=== PATIENT | female | born 1980 | race African-American/Black ===

== ENCOUNTER 2018-09-13 13:40 | Inpatient (IN) | payer BC ==
[2018-09-13 14:59] LABS: BASO % 0.5 % (0-2.0); EOS % 0.1 % (0-4.5); HEMATOCRIT 35.1 % (32.4-45.2); HEMOGLOBIN 11.8 GM/dL (10.7-15.3); LYMPH % 11.8 % (8-40); MCH 27.7 pg (25.7-33.7); MCHC 33.8 g/dl (32.0-36.0); MEAN CELL VOLUME 82.1 fl (80-96); MEAN PLT VOLUME 9.8 fl (7.5-11.1); MONO % 8.1 % (3.8-10.2); NEUT % 79.5 % (42.8-82.8); PLATELET COUNT 82 K/MM3 (134-434); RBC 4.27 M/mm3 (3.60-5.2); RDW 13.8 % (11.6-15.6); WHITE BLOOD COUNT 9.8 K/mm3 (4.0-10.0)
[2018-09-13 15:15] LABS: INR 0.92 (0.83-1.09); PROTHROMBIN TIME (PATIENT) 10.9 SEC (9.7-13.0)
[2018-09-13 15:18] LABS: ACTIVATED PTT 27.4 SECONDS (25.2-36.5)
[2018-09-13 15:21] LABS: URINE APPEARANCE CLEAR; URINE BILIRUBIN NEGATIVE (NEGATIVE); URINE COLOR YELLOW; URINE GLUCOSE (UA) NEGATIVE (NEGATIVE); URINE KETONE 2+ (NEGATIVE); URINE LEUK ESTERASE NEGATIVE (NEGATIVE); URINE NITRITE NEGATIVE (NEGATIVE); URINE PROTEIN TRACE (NEGATIVE); URINE UROBILINOGEN 0.2 mg/dL (0.2-1.0)
[2018-09-13 15:24] LABS: ALBUMIN 2.6 g/dl (3.4-5.0); ALK PHOS 203 U/L (45-117); ANION GAP 7 MMOL/L (8-16); BILIRUBIN,TOTAL 0.8 mg/dL (0.2-1); BLOOD UREA NITROGEN 6 mg/dL (7-18); CALCIUM 8.4 mg/dL (8.5-10.1); CHLORIDE 103 mmol/L (98-107); CO2 24 mmol/L (21-32); CREATININE 0.6 mg/dL (0.55-1.3); GLUCOSE,RANDOM 83 mg/dL (74-106); POTASSIUM 3.8 mmol/L (3.5-5.1); SGOT/AST 838 U/L (15-37); SGPT/ALT 857 U/L (13-61); SODIUM 134 mmol/L (136-145); TOT PROT 6.2 g/dl (6.4-8.2); URIC ACID 5.9 mg/dL (2.6-7.2)
[2018-09-13 15:49] LABS: ANISOCYTOSIS 0; MACROCYTOSIS 0; PLATELET ESTIMATE DECREASED
[2018-09-13] MEDS: DEXTROSE 5%-LACTATED RINGERS 1,000 ML IV SCH (16:00)
[2018-09-13 16:34] VITALS: BMI 32.8
--- NOTE | 2018-09-13 17:50 | HP ---
Past Medical History - Primary Care Physician PCP:: Lexa Crews - Admission Chief Complaint: 37yo P2 with at EGA 37 4/7wks admitted to L&D with c/ o increasing RUQ pain since last night. 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 She denies nausea or vomiting but admits to polydipsia. The pt was found to have elevated AST and ALT in >800 range with Plt=82. The liver US showed non-specific echogenic areas w/o evidence of cholelythisis. 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: No: Alzheimer's, CVA, Dementia, Migraine, Multiple Sclerosis, Peripheral Neuropathy, Parkinson's, Seizure, Syncope, TIA, Vertigo, Other Cardiovascular: No: AFIB, Aneurysm, Aortic Insufficiency, Aortic Stenosis, CAD, CHF, Deep Vein Thrombosis, HTN, Hyperlipdemia, MS, Mitral Insufficiency, Mitral Stenosis, Murmur, Pulmonary Hypertension, Other Pulmonary: No: Asthma, Bronchitis, Cancer, COPD, O2 Dependent, Pneumonia, Previously Intubated, Pulmonary Embolus, Pulmonary Fibrosis, Sleep Apnea, Other Gastrointestinal: No: Ascites, Cancer, Constipation, Crohn's Disease, Diverticulitis, Diverticulosis, Esophageal Varices, Gastritis, GERD, GI Bleed, Hemorrhoids, Hiatal Hernia, Inflamatory Bowel Disease, Irritable Bowel Disease, Pancreatitis, Peptic Ulcer Disease, Ulcerative Colitis, Other Hepatobiliary: No: Cirrhosis, Cholelithiasis, Cholecystitis, Choledocholithiasis , Hepatitis A, Hepatitis B, Hepatitis C, Other Renal/: No: Renal Failure, Renal Inusuff, BPH, Cancer, Hematuria, Hemodialysis , Neurogenic Bladder, Renal Calculi, UTI, Other ...: 3 ...Para: 2 ( x 2) ...Term: 2 ...: 0 ...Spon : 0 ...Induced : 0 ...Multiple Gestation: 0 ...LMP: 12/24/17 ... Weeks Gestation by Dates: 37.4 ...EDC by Dates: 09/30/18 ...EDC by Sono: 09/30/18 Heme/Onc: No: Anemia, B12 Deficiency, Bleeding Disorder, Cancer, Current Chemotherapy, Current Radiation Therapy, Hemochromatosis, Hypercoaguable State, Myeloproliferative Synd, Sickle Cell Disease, Sickle Cell Trait, Thrombocytopenia, Other Infectious Disease: No: AIDS, C-Diff, Herpes Zoster, HIV, MRSA, STD's, Tuberculosis, VREF, Other Psych: No: Addictions, Anxiety, Bipolar, Depression, Panic, Psychosis, Schizophrenia, Other Musculoskeletal: No: Bursitis, Chronic low back pain, Hemiparesis, Hemiplegia, Osteoarthritis, Paraplegia, Other Rheumatology: No: Fibromyalgia, Gout, Lupus, Rheumatoid Arthritis, Sarcoidosis, Vasculitis, Other ENT: No: Allergic Rhinitis, Sinusitis, Other Endocrine: Yes: Hypothyroidism Dermatology: No: Basal Cell, Cellulitis, Eczema, Melanoma, Psoriasis, Squamous Cell, Other - Past Surgical History Past Surgical History: Yes: Hernia Repair Hx Myomectomy: No Hx Transabdominal Cerclage: No - Smoking History Smoking history: Never smoked Have you smoked in the past 12 months: No - Alcohol/Substance Use Hx Alcohol Use: No History of Substance Use: reports: None - Social History Usual Living Arrangement: Yes: With Spouse, With Child ADL: Independent History of Recent Travel: No Home Medications - Allergies Allergies/Adverse Reactions: Allergies Allergy/AdvReac Type Severity Reaction Status Date / Time Penicillins Allergy Severe Hives Verified 09/13/18 16:03 - Home Medications Home Medications: Ambulatory Orders Levothyroxine [Synthroid -] 175 mcg PO DAILY 09/13/18 Pnv No.95/Ferrous Fum/Folic AC [ Vitamin Tablet] 1 each PO DAILY Family Disease History - Family Disease History Family History: Unremarkable Review of Systems Findings/Remarks: Well appearing, NAD - Review of Systems Constitutional: reports: No Symptoms Eyes: reports: No Symptoms HENT: reports: No Symptoms Neck: reports: No Symptoms Cardiovascular: reports: No Symptoms Respiratory: reports: No Symptoms Gastrointestinal: reports: Abdominal Pain (RUQ) Genitourinary: reports: No Symptoms Breasts: reports: No Symptoms Reported Musculoskeletal: reports: No Symptoms Integumentary: reports: No Symptoms Neurological: reports: No Symptoms Endocrine: reports: No Symptoms Hematology/Lymphatic: reports: No Symptoms Psychiatric: reports: No Symptoms Pain Intensity: 4 Physical Exam - Maternity Vital Signs: Vital Signs Temperature 98.7 F 09/13/18 15:30 Pulse Rate 93 H 09/13/18 17:00 Respiratory Rate 18 09/13/18 17:00 Blood Pressure 135/86 09/13/18 17:00 O2 Sat by Pulse Oximetry (%) Constitutional: Yes: Well Nourished, No Distress, Calm Eyes: Yes: WNL, Conjunctiva Clear, EOM Intact HENT: Yes: WNL, Atraumatic, Normocephalic Neck: Yes: WNL, Supple, Trachea Midline Cardiovascular: Yes: WNL, Regular Rate and Rhythm Lungs: Clear to auscultation, Normal air movement - Abdominal Exam/OB Fundal Height: 37 Number of Fetuses: Single Presentation: Vertex Contractions: No Heart Rate Location: Midline Category: II Accelerations: Non-Uniform Decelerations: Variable - Vaginal Exam/OB Vaginal Bleediing: No Speculum Exam: No Dilatation (cm): 0 Effacement (%): 0 Amniotic Membrane Status: Intact Presentation: Vertex/Position Station: -4 - Physical Exam Musculoskeletal: Yes: WNL Extremities: Yes: WNL Edema: No Integumentary: Yes: WNL Deep Tendon Reflex Grade: Normal +2 ...Motor Strength: WNL Psychiatric: Yes: WNL, Alert, Oriented - Labs Lab Results: CBC, BMP 09/13/18 14:45 09/13/18 14:45 Hemorrhage Risk Assessment - Risk Factors Medium Risk Factors: Yes: None High Risk Factors: Yes: None Risk Score: 1 Risk Level: Medium Risk Imaging - Results Ultrasound: Report Reviewed Assessment/Plan 37yo P2 with at EGA 37 4/7wks admitted to L&D with c/o increasing RUQ pain since last night. The pt is being evluated for possibel acute fatty liver of vs HELLP. She appears clinically stable at this time. The BP is labile but sometimes mildly elevated. However, the tracing is category II due to tachycardia. Plan to monitor for now. Repeat labs to assess trend and r/o error. Plan to proceed with delivery. Not likely to induce due to Category II tracing. Awaiting repeat labs.
[2018-09-13 18:10] LABS: BASO % 0.4 % (0-2.0); EOS % 0.1 % (0-4.5); HEMATOCRIT 32.9 % (32.4-45.2); HEMOGLOBIN 11.3 GM/dL (10.7-15.3); LYMPH % 11.3 % (8-40); MCH 28.2 pg (25.7-33.7); MCHC 34.3 g/dl (32.0-36.0); MEAN CELL VOLUME 82.2 fl (80-96); MEAN PLT VOLUME 10.1 fl (7.5-11.1); MONO % 7.7 % (3.8-10.2); NEUT % 80.5 % (42.8-82.8); PLATELET COUNT 76 K/MM3 (134-434); RDW 13.7 % (11.6-15.6); WHITE BLOOD COUNT 10.5 K/mm3 (4.0-10.0)
[2018-09-13 18:37] LABS: ALBUMIN 2.4 g/dl (3.4-5.0); ALK PHOS 201 U/L (45-117); AMYLASE 60 U/L (25-115); ANION GAP 10 MMOL/L (8-16); BILIRUBIN,TOTAL 0.9 mg/dL (0.2-1); BLOOD UREA NITROGEN 6 mg/dL (7-18); CHLORIDE 104 mmol/L (98-107); CO2 20 mmol/L (21-32); CREATININE 0.6 mg/dL (0.55-1.3); GLUCOSE,RANDOM 95 mg/dL (74-106); LIPASE 126 U/L (73-393); POTASSIUM 3.5 mmol/L (3.5-5.1); SGOT/AST 913 U/L (15-37); SGPT/ALT 921 U/L (13-61); SODIUM 135 mmol/L (136-145); TOT PROT 5.9 g/dl (6.4-8.2)
[2018-09-13] MEDS: ELECTROLYTE-148 SOLN 1,000 ML IV SCH (18:50)
[2018-09-13] MEDS ORDERED: morphine SULFATE/Preservative Free 0.5 MG/ML (1cc Syringe) ONE (19:22)
[2018-09-13] MEDS ORDERED: OXYTOCIN 20 UNITS in 0.9% NS 20 UNIT/1,000 ML INFUS.BAG IV ONE ×2 (19:24→21:05)
[2018-09-13] MEDS ORDERED: TUBERCULIN PPD 5 TU/0.1ML SYRINGE (IN PATIENT USE ONLY) ID ONE ×2 (19:31→21:00)
[2018-09-13] MEDS ORDERED: CITRIC ACID/SODIUM CITRATE 30 ML UNIT-DOSE CUP PO ONE (19:31)
[2018-09-13] MEDS ORDERED: ONDANSETRON 4 MG/2 ML VIAL IVPUSH PRN (19:56)
[2018-09-13] MEDS ORDERED: IBUPROFEN 600 MG TABLET (FP) PO PRN (19:56)
[2018-09-13] MEDS ORDERED: ACETAMINOPHEN 325 MG TABLET (FP) PO PRN (19:56)
[2018-09-13] MEDS ORDERED: CLINDAMYCIN PHOSPHATE 600 MG/4 ML VIAL ONE ×2 (19:58)
[2018-09-13 20:22] LABS: VENOUS PC02 44.3 mmHg (41-51); VENOUS PH 7.36 (7.31-7.41)
[2018-09-13 20:24] LABS: ARTERIAL BLD GAS O2 SATURATION 21.1 % (95-98); ARTERIAL BLOOD GAS BASE EXCESS -1.2 meq/l (-2-2); ARTERIAL BLOOD GAS PCO2 50.8 mmHg (35-45); ARTERIAL BLOOD GAS pH 7.32 (7.35-7.45)
[2018-09-13 20:29] LABS: VENOUS PO2 17.8 mmHg (30-40)
[2018-09-13 20:30] LABS: ARTERIAL BLOOD GAS PO2 14.6 mmHg (80-105)
[2018-09-13] MEDS ORDERED: OXYTOCIN 10 UNITS/ML VIAL ONE (20:37)
[2018-09-13] MEDS ORDERED: METHYLERGONOVINE MALEATE 0.2 MG/1 ML AMP IM PRN (20:44)
--- NOTE | 2018-09-13 20:44 | OP ---
Operative Note - Note: Operative Date: 09/13/18 Pre-Operative Diagnosis: at EGA 37 2/7wk, Acute fatty liver of , non-reassuring FHT Operation: Primary LT C/S Findings: Live baby girl in vtx presentation, no meconium, normal ut/ovaries/tubes, 9/9, Wt= 5lb 8oz. Post-Operative Diagnosis: Same as Pre-op Surgeon: Lexa Crews [employer] Production Professional: Dany Cueva Anesthesiologist/LAMINATION INSPECTOR: Eric Gr Anesthesia: Spinal Specimens Removed: Placenta Estimated Blood Loss (mls): 500 Drains & Tubes with Location: Turner cath Drains, Volume Out (mls): 50 Blood Volume Replaced (mls): 0 Fluid Volume Replaced (mls): 1,500 Operative Report Dictated: Yes
[2018-09-13] MEDS: OXYTOCIN 20 UNITS in 0.9% NS 20 UNIT/1,000 ML INFUS.BAG IV SCH (21:00)
--- NOTE | 2018-09-13 22:03 | OP ---
DATE OF OPERATION: 09/13/2018 PREOPERATIVE DIAGNOSIS: with estimated gestational age of 37 weeks 2 days. Acute fatty liver of . Nonreassuring heart tracing. POSTOPERATIVE DIAGNOSIS: with estimated gestational age of 37 weeks 2 days. Acute fatty liver of . Nonreassuring heart tracing. Delivered. PROCEDURE: Primary low transverse section via Pfannenstiel skin incision. SURGEON: Lexa Crews MD CASING OPERATOR: Dany Cueva MD ANESTHESIOLOGIST: Eric Gr MD ANESTHESIA: Spinal. COMPLICATIONS: None. ESTIMATED BLOOD LOSS: 500 mL INTRAVENOUS FLUIDS: 1500 mL URINE OUTPUT: 50 mL of clear urine at the end of the procedure. PATHOLOGY: Placenta. FINDINGS: Live baby girl in vertex presentation. No meconium in amniotic fluids. Normal uterus. Normal ovaries. Normal fallopian tubes. Apgars are 9 and 9. Baby's weight is 5 pounds 8 ounces. DESCRIPTION OF PROCEDURE: The patient was met preoperatively. Risks, benefits, and alternatives of surgery were discussed in detail. All questions were answered. The patient was then brought to the OR with the IV running. She was placed on the surgical table in the supine position. The spinal anesthesia was achieved without difficulty. The patient was then placed in a supine position with leftward tilt. She was prepped and draped in the usual sterile fashion. A Turner catheter was left to drain to gravity. The timeout procedure was conducted as per standard protocol. The surgeon then proceeded with the operation. A Pfannenstiel skin incision was made with a knife, approximately 2 cm above the pubic symphysis. The incision was carried down to the level of the fascia. The fascia was incised in the midline. The incision was extended bilaterally using Dee scissors. The fascia was then dissected away from the rectus muscles superiorly and inferiorly. The rectus muscles were in the midline using blunt dissection. The peritoneum was identified and entered sharply. The peritoneal incision was extended superiorly and inferiorly using Metzenbaum scissors. The bladder peritoneum was then dissected away from the lower uterine segment. The bladder was reflected downwards using a Zafar retractor. The lower uterine segment was incised transversely using a knife. The incision was extended bilaterally using bandage scissors. The baby was delivered from vertex presentation and without complications. The baby was crying spontaneously. The umbilical cord was clamped and cut. The baby was handed to the awaiting plastic surgery specialist. A segment of the umbilical cord was secured for umbilical cord gas. The placenta was then delivered manually and without complications. The uterus was exteriorized. The incision of the uterus was repaired using a 0 Biosyn suture with a running locking stitch. Good hemostasis was noted. The uterine incision was then imbricated using a secondary layer of closure with 0 Biosyn suture. The uterus was noted to be well contracted and it was returned to the pelvis. The bladder peritoneum was approximated with good hemostasis. The operative site was irrigated using copious amounts of normal saline and good hemostasis was noted. The parietal peritoneum was closed with a 2-0 chromic suture. The rectus muscles were approximated in the midline using several interrupted 2-0 chromic sutures. The fascia was closed with a 0 Vicryl suture with good hemostasis and approximation. The subcutaneous adipose tissues and Emanuel fascia were approximated using several 0 Vicryl sutures. The skin was closed with a 4-0 suture using a subcutaneous stitch. Sponge, lap, instrument counts were correct. The patient tolerated the procedure well and was transferred to the recovery room in stable condition and awake. Ivan [id number]
[2018-09-13 23:53] LABS: HEMATOCRIT 30.2 % (32.4-45.2); HEMOGLOBIN 10.4 GM/dL (10.7-15.3); MCHC 34.4 g/dl (32.0-36.0); MEAN CELL VOLUME 81.4 fl (80-96); MEAN PLT VOLUME 9.4 fl (7.5-11.1); PLATELET COUNT 64 K/MM3 (134-434); RBC 3.71 M/mm3 (3.60-5.2); RDW 13.7 % (11.6-15.6); WHITE BLOOD COUNT 9.3 K/mm3 (4.0-10.0)
[2018-09-14] MEDS ORDERED: IBUPROFEN 800 MG/8 ML IJ IVPB ONE ×2 (00:07→09:04)
[2018-09-14] MEDS ORDERED: CLINDAMYCIN PHOSPHATE 600 MG/4 ML VIAL ONE (00:09)
[2018-09-14 00:22] LABS: INR 0.97 (0.83-1.09); PROTHROMBIN TIME (PATIENT) 11.5 SEC (9.7-13.0)
[2018-09-14 00:25] LABS: ACTIVATED PTT 25.5 SECONDS (25.2-36.5)
[2018-09-14] MEDS: CLINDAMYCIN 900 MG PREMIX IVPB 900 MG/50 ML BAG IVPB SCH ×4 (00:40→23:53)
[2018-09-14] MEDS ORDERED: GENTAMICIN INJECTION 350 MG in DEXTROSE 5%-WATER - 250 ML IVPB SCH (01:00)
[2018-09-14 01:43] LABS: ALBUMIN 2.2 g/dl (3.4-5.0); ALK PHOS 176 U/L (45-117); ANION GAP 9 MMOL/L (8-16); BILIRUBIN,TOTAL 1.1 mg/dL (0.2-1); BLOOD UREA NITROGEN 6 mg/dL (7-18); CALCIUM 7.4 mg/dL (8.5-10.1); CHLORIDE 108 mmol/L (98-107); CO2 20 mmol/L (21-32); CREATININE 0.6 mg/dL (0.55-1.3); GLUCOSE,RANDOM 91 mg/dL (74-106); POTASSIUM 3.6 mmol/L (3.5-5.1); SGOT/AST 979 U/L (15-37); SGPT/ALT 940 U/L (13-61); SODIUM 137 mmol/L (136-145); TOT PROT 5.3 g/dl (6.4-8.2)
[2018-09-14] MEDS: OXYTOCIN 20 UNITS in 0.9% NS 20 UNIT/1,000 ML INFUS.BAG IV SCH (05:00)
[2018-09-14] MEDS ORDERED: OXYTOCIN 20 UNITS in 0.9% NS 20 UNIT/1,000 ML INFUS.BAG IV ONE (05:16)
[2018-09-14 05:18] LABS: HEMATOCRIT 31.9 % (32.4-45.2); HEMOGLOBIN 10.9 GM/dL (10.7-15.3); MCH 28.2 pg (25.7-33.7); MEAN PLT VOLUME 8.9 fl (7.5-11.1); PLATELET COUNT 55 K/MM3 (134-434); RBC 3.84 M/mm3 (3.60-5.2); RDW 13.8 % (11.6-15.6); WHITE BLOOD COUNT 9.6 K/mm3 (4.0-10.0)
[2018-09-14 05:34] LABS: INR 0.96 (0.83-1.09); PROTHROMBIN TIME (PATIENT) 11.3 SEC (9.7-13.0)
[2018-09-14 06:07] LABS: ALBUMIN 2.2 g/dl (3.4-5.0); ALK PHOS 184 U/L (45-117); ANION GAP 7 MMOL/L (8-16); BILIRUBIN,TOTAL 0.9 mg/dL (0.2-1); BLOOD UREA NITROGEN 6 mg/dL (7-18); CALCIUM 7.5 mg/dL (8.5-10.1); CHLORIDE 109 mmol/L (98-107); CO2 23 mmol/L (21-32); CREATININE 0.8 mg/dL (0.55-1.3); GLUCOSE,RANDOM 82 mg/dL (74-106); POTASSIUM 4.1 mmol/L (3.5-5.1); SGOT/AST 1046 U/L (15-37); SGPT/ALT 1041 U/L (13-61); SODIUM 140 mmol/L (136-145); TOT PROT 5.2 g/dl (6.4-8.2); URIC ACID 5.7 mg/dL (2.6-7.2)
[2018-09-14 07:37] LABS: BASO % 0.4 % (0-2.0); EOS % 0.6 % (0-4.5); HEMATOCRIT 29.6 % (32.4-45.2); HEMOGLOBIN 10.3 GM/dL (10.7-15.3); LYMPH % 11.8 % (8-40); MCH 28.5 pg (25.7-33.7); MCHC 34.6 g/dl (32.0-36.0); MEAN CELL VOLUME 82.3 fl (80-96); MEAN PLT VOLUME 9.6 fl (7.5-11.1); MONO % 6.6 % (3.8-10.2); NEUT % 80.6 % (42.8-82.8); PLATELET COUNT 53 K/MM3 (134-434); RDW 13.9 % (11.6-15.6); WHITE BLOOD COUNT 9.1 K/mm3 (4.0-10.0)
[2018-09-14] MEDS: IBUPROFEN 800 MG/8 ML IJ IVPB PRN ×3 (09:11→20:44)
--- NOTE | 2018-09-14 09:22 | PN ---
Post Progress Note - Subjective Subjective: Pt w/o acute complaints. She has some mild incisional pain with movement. No fever or chills. No Flatus or BM yet. No nausea or vomiting. She is thirsty. She is breast feeding. Pt is resting in bed and appears well. Post Day: 1 Type of Delivery: Primary C/S Vital Signs: Vital Signs Temperature 98.8 F 09/14/18 08:00 Pulse Rate 78 09/14/18 08:00 Respiratory Rate 17 09/14/18 09:00 Blood Pressure 115/74 09/14/18 08:00 O2 Sat by Pulse Oximetry (%) 100 09/14/18 06:00 Breast Exam: Yes: Soft Uterus: Yes: Fundus Firm, Fundus below umbilicus, Non-tender Incision: Yes: Dressing dry and intact Abdomen/GI: Yes: Abdomen soft, Tolerating PO Lochia: Yes: Rubra Lochia, amount: Small Extremities: Yes: Calves non-tender, Edema (trace) Perineum: Yes: Intact Activity: Other (resting in bed) - Labs Labs: CBC WBC 9.1 K/mm3 (4.0-10.0) 09/14/18 06:50 RBC 3.60 M/mm3 (3.60-5.2) 09/14/18 06:50 Hgb 10.3 GM/dL (10.7-15.3) L 09/14/18 06:50 Hct 29.6 % (32.4-45.2) L 09/14/18 06:50 MCV 82.3 fl (80-96) 09/14/18 06:50 MCH 28.5 pg (25.7-33.7) 09/14/18 06:50 MCHC 34.6 g/dl (32.0-36.0) 09/14/18 06:50 RDW 13.9 % (11.6-15.6) 09/14/18 06:50 Plt Count 53 K/MM3 (134-434) L 09/14/18 06:50 MPV 9.6 fl (7.5-11.1) 09/14/18 06:50 Absolute Neuts (auto) 7.3 K/mm3 (1.5-8.0) 09/14/18 06:50 Neutrophils % 80.6 % (42.8-82.8) 09/14/18 06:50 Neutrophils % (Manual) 77.8 % (42.8-82.8) 09/13/18 14:45 Band Neutrophils % 1.0 % 09/13/18 14:45 Lymphocytes % 11.8 % (8-40) 09/14/18 06:50 Lymphocytes % (Manual) 5.0 % (8-40) L 09/13/18 14:45 Monocytes % 6.6 % (3.8-10.2) 09/14/18 06:50 Monocytes % (Manual) 6 % (3.8-10.2) 09/13/18 14:45 Eosinophils % 0.6 % (0-4.5) D 09/14/18 06:50 Eosinophils % (Manual) 1.0 % (0-4.5) 09/13/18 14:45 Basophils % 0.4 % (0-2.0) 09/14/18 06:50 Basophils % (Manual) 0.0 % (0-2.0) 09/13/18 14:45 Myelocytes % (Man) 0 % (0-2) 09/13/18 14:45 Promyelocytes % (Man) 0 % (0-2) 09/13/18 14:45 Blast Cells % (Manual) 0 % (0-0) 09/13/18 14:45 Nucleated RBC % 0 % (0-0) 09/14/18 06:50 Metamyelocytes 0 % (0-2) 09/13/18 14:45 Hypochromia 0 09/13/18 14:45 Platelet Estimate Decreased 09/13/18 14:45 Polychromasia 0 09/13/18 14:45 Poikilocytosis 0 09/13/18 14:45 Anisocytosis 0 09/13/18 14:45 Microcytosis 0 09/13/18 14:45 Macrocytosis 0 09/13/18 14:45 Other Findings, Remarks: Skin: normal, no bruising or skin rashes, no jaundice, no lesions Back: no CVAT Neuro: A&O x 3, responding normally, non-focal exam Assessment/Plan 37yo P3 s/p primary LT C/S last night. The pt has elevated LFT and thrombocytopenia. She has spiked a low-grade fever last night but that has resolved. She has normal BP now, although had a few elevated BP prior to C/S. The working Dx was acute fatty liver of vs atypical HELLP. However, the pt also had transient fever of unknown etiology. She is doing well postop. Plan to consult ID, Heme, and GI. Monitor labs OOB later today Continu i/o strictly.
--- NOTE | 2018-09-14 09:54 | PN ---
Progress Note (short form) - Note Progress Note: ID consult dictated 37 yo female with 37 weeks developed RUQ pain on Friday worsened overnight came to ED on Friday sonogram -slightly thickened GB wall, no stones noted to have normal WBC and abnl LFTs and thrombocytopenia s/p csection last night asked to evaluate for fever overnight post csection resting comfortably still some RUQ discomfort LFTs still rising, still thromobocytopenic INR normal WBC normal fever resolved got clindamycin/gent early am (pen allergy) UA negative no pets no travel no sick contacts no mosquito, tick bites ate a turkey sandwich from the [employer] on Friday currently working from home no cough no prior surgery ?HELLP fever would get cxray received clindamycin and gent earlier today will switch to clindamycin and azactam until cultures are back add on LDH hematology and GI to evaluate d/w Dr Crews Problem List - Problems (1) Fever Code(s): R50.9 - FEVER, UNSPECIFIED (2) Elevated LFTs Code(s): R94.5 - ABNORMAL RESULTS OF LIVER FUNCTION STUDIES (3) Thrombocytopenia Code(s): D69.6 - THROMBOCYTOPENIA, UNSPECIFIED (4) HELLP syndrome Code(s): O14.20 - HELLP SYNDROME (HELLP), UNSPECIFIED TRIMESTER
[2018-09-14 10:12] LABS: LDH 905 U/L (84-246)
[2018-09-14] MEDS: PRENATAL VITAMINS W/ FOLIC ACID TABLET (FP) PO SCH (10:25)
--- NOTE | 2018-09-14 10:55 | CON.GI ---
Consult Consult Specialty:: Gastroenterology Referred by:: Dr. Crews Reason for Consultation:: Elevated LFTs - History of Present Illness History of Present Illness: 37yo female h/o hypothyroidism, presents at 37 weeks gestation with RUQ pain x 1 day and elevated LFTs now s/p section. Pt reporting RUQ pain on Friday with gradual worsening and radiation towards the back prompting hospitalization. Mild nausea, denies associated vomiting, jaundice or altered bowel pattern. Denies headache or mental fogginess. Pt noted to have marked LFT elevation with AST/ALT 800s on admission with continued increase today to 1000s. Pt also with low grade temperature and transient HTN which have now resolved. US yesterday revealing echogenic areas within liver, possible fatty infiltration, and cholelithiasis. Due to fecal tachycardia pt underwent uncomplicated section last night, baby doing well. Pt feeling well currently, some mild discomfort s/p C section however states RUQ pain has resolved. Denies n/v, fever/chills. Not yet moved bowels. No complaints currently. No known prior h/o liver disease. No prior LFTs to compare. Prior 2 deliveries were vaginal and uncomplicated. 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: No: Alzheimer's, CVA, Dementia, Migraine, Multiple Sclerosis, Peripheral Neuropathy, Parkinson's, Seizure, Syncope, TIA, Vertigo, Other Cardio/Vascular: No: AFIB, Aneurysm, Aortic Insufficiency, Aortic Stenosis, CAD , CHF, Deep Vein Thrombosis, HTN, Hyperlipdemia, MO, Mitral Insufficiency, Mitral Stenosis, Murmur, Pulmonary Hypertension, Other Pulmonary: No: Asthma, Bronchitis, Cancer, COPD, O2 Dependent, Pneumonia, Previously Intubated, Pulmonary Embolus, Pulmonary Fibrosis, Sleep Apnea, Other Gastrointestinal: No: Ascites, Cancer, Constipation, Crohn's Disease, Diverticulitis, Diverticulosis, Esophageal Varices, Gastritis, GERD, GI Bleed, Hemorrhoids, Hiatal Hernia, Inflamatory Bowel Disease, Irritable Bowel Disease, Pancreatitis, Peptic Ulcer Disease, Ulcerative Colitis, Other Hepatobiliary: No: Cirrhosis, Cholelithiasis, Cholecystitis, Choledocholithiasis , Hepatitis A, Hepatitis B, Hepatitis C, Other Renal/: No: Renal Failure, Renal Inusuff, BPH, Cancer, Hematuria, Hemodialysis , Neurogenic Bladder, Renal Calculi, UTI, Other Infectious Disease: No: AIDS, C-Diff, Herpes Zoster, HIV, MRSA, STD's, Tuberculosis, VREF, Other Psych: No: Addictions, Anxiety, Bipolar, Depression, Panic, Psychosis, Schizophrenia, Other Musculoskeletal: No: Bursitis, Chronic low back pain, Hemiparesis, Hemiplegia, Osteoarthritis, Paraplegia, Other Rheumatology: No: Fibromyalgia, Gout, Lupus, Rheumatoid Arthritis, Sarcoidosis, Vasculitis, Other ENT: No: Allergic Rhinitis, Sinusitis, Other Endocrine: Yes: Hypothyroidism Dermatology: No: Basal Cell, Cellulitis, Eczema, Melanoma, Psoriasis, Squamous Cell, Other - Past Surgical History Past Surgical History: Yes: Hernia Repair - Alcohol/Substance Use Hx Alcohol Use: No History of Substance Use: reports: None - Smoking History Smoking history: Never smoked Have you smoked in the past 12 months: No - Social History ADL: Independent History of Recent Travel: No Home Medications - Allergies Allergies/Adverse Reactions: Allergies Allergy/AdvReac Type Severity Reaction Status Date / Time Penicillins Allergy Severe Hives Verified 09/13/18 16:03 - Home Medications Home Medications: Ambulatory Orders Levothyroxine [Synthroid -] 175 mcg PO DAILY 09/13/18 Pnv No.95/Ferrous Fum/Folic AC [ Vitamin Tablet] 1 each PO DAILY Review of Systems - Review of Systems Constitutional: reports: No Symptoms HENT: reports: No Symptoms Cardiovascular: reports: No Symptoms Respiratory: reports: No Symptoms Gastrointestinal: reports: No Symptoms Musculoskeletal: reports: No Symptoms Neurological: reports: No Symptoms Physical Exam-GI Vital Signs: Vital Signs Temperature 98.2 F 09/14/18 10:00 Pulse Rate 95 H 09/14/18 10:00 Respiratory Rate 17 09/14/18 10:00 Blood Pressure 111/62 09/14/18 10:00 O2 Sat by Pulse Oximetry (%) 100 09/14/18 06:00 Constitutional: Yes: Well Nourished, No Distress, Calm Cardiovascular: Yes: WNL, Regular Rate and Rhythm Respiratory: Yes: WNL, Regular, CTA Bilaterally Gastrointestinal Inspection: Yes: WNL ...Palpate: Yes: Other (Abd softly distended, mildly discomfort diffusely and mild tenderness on palpation in RUQ, negative murphys, dressing on lower abdomen s/p C section) Labs: CBC, BMP 09/14/18 06:50 09/14/18 05:07 INR, PTT INR 0.96 (0.83-1.09) 09/14/18 05:07 Fibrinogen > 500.0 mg/dL (238-498) H 09/14/18 05:07 Imaging - Results Ultrasound: Report Reviewed Problem List - Problems (1) Elevated LFTs Assessment/Plan: 37yo female h/o hypothyroidism, presents at 37 weeks gestation with RUQ pain x 1 day and elevated LFTs now s/p uncomplicated section. Marked transaminases noted to 1000s and mild alk phos elevation with normal bili (no prior LFTs to compare). RUQ pain has since resolved. No headaches or altered mental status. Normocytic anemia noted. Possible etiologies including HELLP vs acute fatty liver of , however less likely latter in view of normal glucose and coags. Presentation/labs less consistent with intrahepatic cholestasis. If HELLP would anticipate elevation in LFTs over 24-48 hours peripartum with expectant normalization. -Recommend continue supportive measures -Close monitoring of LFTs, at least q12 -Monitor glucose levels -Montior PT/INR -Check CBC with smear -Check LDH, haptoglobin -Check urine protein/creat ratio to assess for proteinuria -Follow up hepatitis serologies -Further management per OB team -Placed call to Dr. Crews to discuss above (await call back) Code(s): R94.5 - ABNORMAL RESULTS OF LIVER FUNCTION STUDIES
[2018-09-14] MEDS: LEVOTHYROXINE NA 100 MCG TABLET (FP) PO SCH (11:25)
[2018-09-14 12:27] LABS: BASO % 0.3 % (0-2.0); EOS % 0.2 % (0-4.5); HEMATOCRIT 30.1 % (32.4-45.2); HEMOGLOBIN 10.2 GM/dL (10.7-15.3); LYMPH % 7.1 % (8-40); MEAN CELL VOLUME 82.3 fl (80-96); MEAN PLT VOLUME 9.7 fl (7.5-11.1); MONO % 5.9 % (3.8-10.2); NEUT % 86.5 % (42.8-82.8); PLATELET COUNT 55 K/MM3 (134-434); RBC 3.66 M/mm3 (3.60-5.2); RDW 14.1 % (11.6-15.6); WHITE BLOOD COUNT 11.5 K/mm3 (4.0-10.0)
[2018-09-14 12:31] LABS: INR 0.93 (0.83-1.09)
[2018-09-14 12:52] LABS: ALBUMIN 1.9 g/dl (3.4-5.0); ALK PHOS 171 U/L (45-117); ANION GAP 6 MMOL/L (8-16); BILIRUBIN,TOTAL 0.8 mg/dL (0.2-1); BLOOD UREA NITROGEN 8 mg/dL (7-18); CALCIUM 7.3 mg/dL (8.5-10.1); CHLORIDE 110 mmol/L (98-107); CO2 21 mmol/L (21-32); CREATININE 0.6 mg/dL (0.55-1.3); GLUCOSE,RANDOM 95 mg/dL (74-106); LDH 728 U/L (84-246); POTASSIUM 3.7 mmol/L (3.5-5.1); SGOT/AST 966 U/L (15-37); SGPT/ALT 1030 U/L (13-61); SODIUM 137 mmol/L (136-145); TOT PROT 4.9 g/dl (6.4-8.2)
[2018-09-14 13:40] LABS: EPI CELLS 1.3 /HPF (0-5/HPF); URINE APPEARANCE CLEAR; URINE BACTERIA 4.7 /hpf (NEGATIVE); URINE BILIRUBIN NEGATIVE (NEGATIVE); URINE CASTS 3 /lpf (0-8); URINE COLOR YELLOW; URINE GLUCOSE (UA) NEGATIVE (NEGATIVE); URINE KETONE NEGATIVE (NEGATIVE); URINE LEUK ESTERASE NEGATIVE (NEGATIVE); URINE NITRITE NEGATIVE (NEGATIVE); URINE PROTEIN NEGATIVE (NEGATIVE); URINE RBC 2 /hpf (0-4); URINE WBC 2 /hpf (0-5)
--- NOTE | 2018-09-14 14:24 | PN ---
Progress Note (short form) - Note Progress Note: POD1 s/p c/s with spinal duramorph. Pt had mild itching that was relieved with benadryl. Able to ambulate, with no ARAGON, backpain. Incisional pain well tolerated. No anesthetic issues/complications
[2018-09-14] MEDS: DEXTROSE 5%-LACTATED RINGERS 1,000 ML IV SCH (15:03)
--- NOTE | 2018-09-14 17:51 | CONS ---
DATE OF CONSULTATION: DATE OF DICTATION: 09/14/2018 HISTORY OF PRESENT ILLNESS: The patient is a G3, P3, 37-year-old female who was admitted to [facility]. She had prepared prior to surgery she had right upper quadrant discomfort. Her liver enzymes were trending up. She had an ALT of 857 on September 13, 2018. On September 14, 2018, there were 966. Her AST was 838 and went up to 966. Her ALT was 857 and went up to 1030. She had a . She had a healthy baby. Her platelet count was 76 prior to delivery. It dropped to 55. She was given 1 L of platelets. the baby and the patient are both doing well. We were consulted for thrombocytopenia. PAST MEDICAL HISTORY: Significant for hypothyroidism. She takes Synthroid for that. She has no prior history of thrombocytopenia. She had an ultrasound of the liver. This shows an acrogenic area in the liver. This is consistent with acute fatty liver disease in . She has a history of PENICILLIN allergy. REVIEW OF SYSTEMS: Cardiac: She has no cardiac history including hypertension, chest pain, shortness of breath. Respiratory: No cough, hemoptysis or wheezing. Gastrointestinal: No nausea, vomiting, diarrhea. PHYSICAL EXAMINATION: General: She is in no acute distress. HEENT: Atraumatic, normocephalic. Neck: No nodes. Lungs: Clear. Heart: Respiratory rate. S1, S2 normal. Abdomen: Soft. Nontender. LABORATORY: Reviewed. Patient was examined completely. IMPRESSION: Hemolysis, Elevated Liver enzymes, and Low Platelet count syndrome with uncomplicated section. The patient is feeling well. Repeat labs have been ordered. No specific therapy is necessary beyond this. I have left my cell number with the floor. If her platelets continue to improve, then no additional therapy would be necessary. Thank you very much for allowing me the pleasure of seeing the patient. URIEL ZAMUDIO M.D. [id number]
--- NOTE | 2018-09-14 17:54 | CONS ---
DATE OF CONSULTATION: DATE OF DICTATION: 09/14/2018 REQUESTED BY: Lexa Crews MD I saw the patient and discussed the case with Dr. Crews. This is an otherwise healthy 37-year-old woman who was having a routine . This weekend she developed right upper quadrant pain on Friday. The symptoms persisted and Friday night she had a low-grade fever of 100.7. She felt worse on Friday. She called Dr. Crews and he advised her to come to the hospital. She had an ultrasound of her liver done in the emergency room that showed no evidence of cholelithiasis. She was noted to have elevated transaminases and a platelet count of 76,000. She underwent a section last night. Post section, she spiked a temperature of 101.2 and she had blood cultures drawn. She was started on clindamycin and gentamicin as she has an ALLERGY TO PENICILLIN. PAST MEDICAL HISTORY: Notable for sickle cell trait. She is hypothyroid. ALLERGIES: PENICILLIN, WHICH GIVES HER HIVES. SOCIAL HISTORY: She is . She has 3 children. This is her 3rd. She has 2 boys who are 7 and 8. No sick contacts. She lives in [place]. She has been working from home for the last several weeks. There has been no travel. They have no pets. The only thing of interest that she has done recently is that she ate a turkey sandwich at the [facility] on Friday. She denies any tick bites. She really has not been going out much. PAST SURGICAL HISTORY: She has had a hernia repair, but no other surgery in the past. REVIEW OF SYSTEMS: Notable for the right upper quadrant pain. She was not sick prior to Friday at all. She denies any cough. She has had no prior surgery. She has no pets, no travel, no sick contacts. No mosquito or tick bites. PHYSICAL EXAMINATION: General: She is awake and alert. Vital Signs: Her temperature max was 101. This morning her temperature is 98.2, pulse is 95, blood pressure 111/62, respiratory rate 20. HEENT: She is normocephalic. Eyes: Anicteric. Neck: Supple. Lungs: Clear to auscultation. Heart: Regular rate and rhythm. Abdomen: Soft. Currently she has minimal right upper quadrant discomfort to palpation. Extremities: Without edema. She has no rash. LABORATORY: Notable for a white count of 9.1, hemoglobin 10.3, platelets 63,000. INR is 0.96, fibrinogen is greater than 500. BUN is 7 and creatinine 0.8 with AST of 1046, ALT of 1041, alkaline phosphatase of 184. Urinalysis is negative. Hepatitis serology is pending. Blood cultures and urine cultures are pending. IN SUMMARY: This is a 37-year-old woman who was 37 weeks and delivered last night via section with abnormal transaminases, who now has thrombocytopenia and had transient fever, which appears resolved. We will get a chest x-ray and would continue the clindamycin and gentamicin given the PENICILLIN ALLERGY. Pending her cultures, continue IV fluids. Check an LDH. I discussed with Dr. Crews who informed me that Hematology and GI would be evaluating the patient as well. Further recommendations to follow. Ivan CHAN/[id number]
[2018-09-14 20:12] LABS: BASO % 0.3 % (0-2.0); EOS % 0.4 % (0-4.5); HEMATOCRIT 34.4 % (32.4-45.2); HEMOGLOBIN 11.4 GM/dL (10.7-15.3); LYMPH % 9.5 % (8-40); MCH 27.6 pg (25.7-33.7); MCHC 33.1 g/dl (32.0-36.0); MEAN CELL VOLUME 83.5 fl (80-96); MEAN PLT VOLUME 10.5 fl (7.5-11.1); MONO % 6.4 % (3.8-10.2); NEUT % 83.4 % (42.8-82.8); PLATELET COUNT 65 K/MM3 (134-434); RBC 4.12 M/mm3 (3.60-5.2); RDW 14.1 % (11.6-15.6); WHITE BLOOD COUNT 12.8 K/mm3 (4.0-10.0)
[2018-09-14 20:29] LABS: INR 0.87 (0.83-1.09); PROTHROMBIN TIME (PATIENT) 10.3 SEC (9.7-13.0)
[2018-09-14] MEDS ORDERED: BISACODYL 10 MG SUPP.RECT RC PRN (20:44)
[2018-09-14] MEDS: SIMETHICONE 80 MG TAB.CHEW (FP) PO PRN (20:45)
[2018-09-14 20:58] LABS: ALBUMIN 2.3 g/dl (3.4-5.0); ALK PHOS 208 U/L (45-117); ANION GAP 8 MMOL/L (8-16); BILIRUBIN,TOTAL 0.9 mg/dL (0.2-1); BLOOD UREA NITROGEN 8 mg/dL (7-18); CHLORIDE 106 mmol/L (98-107); CO2 24 mmol/L (21-32); CREATININE 0.7 mg/dL (0.55-1.3); GLUCOSE,RANDOM 84 mg/dL (74-106); POTASSIUM 3.7 mmol/L (3.5-5.1); SGOT/AST 1005 U/L (15-37); SGPT/ALT 1168 U/L (13-61); SODIUM 139 mmol/L (136-145); TOT PROT 5.7 g/dl (6.4-8.2)
[2018-09-15] MEDS ORDERED: AZTREONAM 1 GM VIAL (RESTRICTED TO ID) IVPB SCH (01:00)
[2018-09-15] MEDS: AZTREONAM 2 GM in DEXTROSE 5%-WATER 100 ML IVPB SCH ×3 (01:43→09:25)
[2018-09-15] MEDS: SIMETHICONE 80 MG TAB.CHEW (FP) PO PRN ×3 (02:37→20:09)
[2018-09-15] MEDS: IBUPROFEN 600 MG TABLET (FP) PO PRN ×3 (02:37→20:09)
[2018-09-15 04:15] LABS: HEP.C VIRUS AB <0.1 s/co ratio (0.0-0.9)
[2018-09-15] MEDS: LEVOTHYROXINE NA 100 MCG TABLET (FP) PO SCH (06:45)
[2018-09-15] MEDS ORDERED: LEVOTHYROXINE NA 175 MCG TABLET PO SCH (07:00)
[2018-09-15 07:29] LABS: BASO % 0.3 % (0-2.0); EOS % 0.5 % (0-4.5); HEMATOCRIT 29.3 % (32.4-45.2); HEMOGLOBIN 9.9 GM/dL (10.7-15.3); LYMPH % 9.5 % (8-40); MCH 27.3 pg (25.7-33.7); MCHC 33.7 g/dl (32.0-36.0); MEAN CELL VOLUME 81.1 fl (80-96); MEAN PLT VOLUME 10.6 fl (7.5-11.1); MONO % 6.9 % (3.8-10.2); NEUT % 82.8 % (42.8-82.8); PLATELET COUNT 65 K/MM3 (134-434); RBC 3.62 M/mm3 (3.60-5.2); RDW 14.1 % (11.6-15.6); WHITE BLOOD COUNT 12.8 K/mm3 (4.0-10.0)
--- NOTE | 2018-09-15 07:41 | PN ---
Post Progress Note - Subjective Subjective: Patient without acute complaints. Reports tolerating oral intake without nausea or vomiting. Ambulating without dizziness. Denies fevers or chills. Pain well controlled with oral pain medication. Passing flatus. Post Day: 2 Type of Delivery: Primary C/S Vital Signs: Vital Signs Temperature 98.6 F 09/15/18 04:30 Pulse Rate 88 09/15/18 04:30 Respiratory Rate 20 09/15/18 04:30 Blood Pressure 136/85 09/15/18 04:30 O2 Sat by Pulse Oximetry (%) 100 09/14/18 06:00 Breast Exam: Yes: Soft Uterus: Yes: Fundus Firm Incision: Yes: Sutures intact Abdomen/GI: Yes: Abdomen soft, Passing flatus, Other (no RUQ tenderness) Lochia: Yes: Rubra Lochia, amount: Small Extremities: Yes: Calves non-tender Perineum: Yes: Intact Activity: Ambulating - Labs Labs: CBC WBC 12.8 K/mm3 (4.0-10.0) H 09/14/18 19:00 RBC 4.12 M/mm3 (3.60-5.2) 09/14/18 19:00 Hgb 11.4 GM/dL (10.7-15.3) 09/14/18 19:00 Hct 34.4 % (32.4-45.2) 09/14/18 19:00 MCV 83.5 fl (80-96) 09/14/18 19:00 MCH 27.6 pg (25.7-33.7) 09/14/18 19:00 MCHC 33.1 g/dl (32.0-36.0) 09/14/18 19:00 RDW 14.1 % (11.6-15.6) 09/14/18 19:00 Plt Count 65 K/MM3 (134-434) L 09/14/18 19:00 MPV 10.5 fl (7.5-11.1) 09/14/18 19:00 Absolute Neuts (auto) 10.7 K/mm3 (1.5-8.0) H 09/14/18 19:00 Neutrophils % 83.4 % (42.8-82.8) H 09/14/18 19:00 Neutrophils % (Manual) 77.8 % (42.8-82.8) 09/13/18 14:45 Band Neutrophils % 1.0 % 09/13/18 14:45 Lymphocytes % 9.5 % (8-40) D 09/14/18 19:00 Lymphocytes % (Manual) 5.0 % (8-40) L 09/13/18 14:45 Monocytes % 6.4 % (3.8-10.2) 09/14/18 19:00 Monocytes % (Manual) 6 % (3.8-10.2) 09/13/18 14:45 Eosinophils % 0.4 % (0-4.5) D 09/14/18 19:00 Eosinophils % (Manual) 1.0 % (0-4.5) 09/13/18 14:45 Basophils % 0.3 % (0-2.0) 09/14/18 19:00 Basophils % (Manual) 0.0 % (0-2.0) 09/13/18 14:45 Myelocytes % (Man) 0 % (0-2) 09/13/18 14:45 Promyelocytes % (Man) 0 % (0-2) 09/13/18 14:45 Blast Cells % (Manual) 0 % (0-0) 09/13/18 14:45 Nucleated RBC % 0 % (0-0) 09/14/18 19:00 Metamyelocytes 0 % (0-2) 09/13/18 14:45 Hypochromia 0 09/13/18 14:45 Platelet Estimate Decreased 09/13/18 14:45 Polychromasia 0 09/13/18 14:45 Poikilocytosis 0 09/13/18 14:45 Anisocytosis 0 09/13/18 14:45 Microcytosis 0 09/13/18 14:45 Macrocytosis 0 09/13/18 14:45 Haptoglobin 22 mg/dL (34-200) L 09/14/18 12:45 Assessment/Plan 37yo P3 now s/p Primary c/section for likely atypical HELLP overall doing well, Afebrile normal exam fill follow 12pm labs d/c Antibiotics will follow Hepatitis labs Encourage ambulation Teds and SCDs when not ambulating
[2018-09-15] MEDS: oxyCODONE HCL 5 MG TABLET PO PRN ×2 (08:29→20:11)
[2018-09-15] MEDS: CLINDAMYCIN 900 MG PREMIX IVPB 900 MG/50 ML BAG IVPB SCH (08:31)
[2018-09-15] MEDS: PRENATAL VITAMINS W/ FOLIC ACID TABLET (FP) PO SCH (09:56)
[2018-09-15 13:00] LABS: ALBUMIN 2.4 g/dl (3.4-5.0); BILIRUBIN,DIRECT 0.3 mg/dL (0.0-0.2); BILIRUBIN,TOTAL 0.8 mg/dL (0.2-1); TOT PROT 5.8 g/dl (6.4-8.2)
[2018-09-15 13:19] LABS: CALCIUM 8.4 mg/dL (8.5-10.1); CREATININE 0.8 mg/dL (0.55-1.3); PHOSPHOROUS 3.4 mg/dL (2.5-4.9); POTASSIUM 3.6 mmol/L (3.5-5.1)
[2018-09-15 17:09] LABS: HBSAG SCREEN Negative (Negative); HEP A AB, IGM Negative (Negative); HEP B CORE AB, TOT Negative (Negative)
[2018-09-15] MEDS: ELECTROLYTE-148 SOLN 1,000 ML IV SCH (19:02)
[2018-09-15] MEDS: OXYTOCIN 20 UNITS in 0.9% NS 20 UNIT/1,000 ML INFUS.BAG IV SCH (19:03)
[2018-09-15] MEDS: DEXTROSE 5%-LACTATED RINGERS 1,000 ML IV SCH (19:03)
--- NOTE | 2018-09-15 19:42 | PN.GI ---
GI Progress Note Subjective: No acute events, No abdominal pain States feeling well - Objective Vital Signs: Vital Signs Temperature 97.9 F 09/15/18 08:00 Pulse Rate 83 09/15/18 08:00 Respiratory Rate 20 09/15/18 08:00 Blood Pressure 138/86 09/15/18 08:00 O2 Sat by Pulse Oximetry (%) 100 09/14/18 06:00 Constitutional: Calm Eyes: No: Sclera Icterus Cardiovascular: Yes: Regular Rate and Rhythm Respiratory: Yes: CTA Bilaterally Gastrointestinal Inspection: Yes: Other (protuberant) ...Auscultate: Yes: Normoactive Bowel Sounds ...Palpate: Yes: Soft. No: Hepatomegaly, Tenderness ...Percussion: No: Tympanitic Edema: LLE: Trace, RLE: Trace Neurological: Yes: Alert, Aphasia. No: Asterixis Labs: CBC, BMP 09/15/18 06:00 09/15/18 12:02 INR, PTT INR 0.87 (0.83-1.09) 09/14/18 19:00 Fibrinogen > 500.0 mg/dL (238-498) H 09/14/18 19:00 Hepatic Panel Total Bilirubin 0.8 mg/dL (0.2-1) 09/15/18 12:02 Direct Bilirubin 0.3 mg/dL (0.0-0.2) H 09/15/18 12:02 AST 447 U/L (15-37) H 09/15/18 12:02 ALT 895 U/L (13-61) H 09/15/18 12:02 Alkaline Phosphatase 200 U/L (45-117) H 09/15/18 12:02 Albumin 2.4 g/dl (3.4-5.0) L 09/15/18 12:02 Laboratory Tests 09/13/18 09/13/18 09/14/18 23:25 23:25 19:00 PT with INR 10.30 INR 0.87 AST ALT Alkaline Phosphatase Hep A IgM Ab Confirm Negative Hepatitis A Ab Total Positive H Hep Bs Antigen Negative Hep Bs Antibody Reactive Hep B Core Total Ab Negative Hepatitis C Antibody <0.1 09/15/18 12:02 PT with INR INR AST 447 H ALT 895 H Alkaline Phosphatase 200 H Hep A IgM Ab Confirm Hepatitis A Ab Total Hep Bs Antigen Hep Bs Antibody Hep B Core Total Ab Hepatitis C Antibody - ....Imaging Ultrasound: Report Reviewed (echogenic areas in liver: ? focal fatty infiltration vs. hemangiomata) Problem List - Problems (1) Elevated LFTs Assessment/Plan: Suspected AFLP vs. HELLP or overlap LFTs improving s/p Avoid hepatotoxic agents Could consider testing for LCHAD deficiency as outpatient Monitor LFTs Code(s): R94.5 - ABNORMAL RESULTS OF LIVER FUNCTION STUDIES
[2018-09-16] MEDS: LEVOTHYROXINE NA 100 MCG TABLET (FP) PO SCH (06:54)
--- NOTE | 2018-09-16 07:26 | PN ---
Post Progress Note - Subjective Subjective: Patient feels well and is without acute complaints. Reports tolerating oral intake without nausea or vomiting. Ambulating without dizziness. Denies headache, scotoma, fevers or chills. Pain well controlled with oral pain medication. Passing flatus. Post Day: 3 Type of Delivery: Primary C/S Vital Signs: Vital Signs Temperature 98.8 F 09/15/18 21:47 Pulse Rate 93 H 09/15/18 21:47 Respiratory Rate 18 09/15/18 21:47 Blood Pressure 137/78 09/15/18 21:47 O2 Sat by Pulse Oximetry (%) 100 09/14/18 06:00 Breast Exam: Yes: Soft Uterus: Yes: Fundus Firm, Fundus below umbilicus, Non-tender Incision: Yes: Sutures intact Abdomen/GI: Yes: Abdomen soft, Passing flatus, Tolerating PO Lochia: Yes: Rubra Lochia, amount: Small Extremities: Yes: Calves non-tender Perineum: Yes: Intact Activity: Ambulating - Labs Labs: CBC WBC 12.8 K/mm3 (4.0-10.0) H 09/15/18 06:00 RBC 3.62 M/mm3 (3.60-5.2) 09/15/18 06:00 Hgb 9.9 GM/dL (10.7-15.3) L 09/15/18 06:00 Hct 29.3 % (32.4-45.2) L 09/15/18 06:00 MCV 81.1 fl (80-96) 09/15/18 06:00 MCH 27.3 pg (25.7-33.7) 09/15/18 06:00 MCHC 33.7 g/dl (32.0-36.0) 09/15/18 06:00 RDW 14.1 % (11.6-15.6) 09/15/18 06:00 Plt Count 65 K/MM3 (134-434) L 09/15/18 06:00 MPV 10.6 fl (7.5-11.1) 09/15/18 06:00 Absolute Neuts (auto) 10.6 K/mm3 (1.5-8.0) H 09/15/18 06:00 Neutrophils % 82.8 % (42.8-82.8) 09/15/18 06:00 Neutrophils % (Manual) 77.8 % (42.8-82.8) 09/13/18 14:45 Band Neutrophils % 1.0 % 09/13/18 14:45 Lymphocytes % 9.5 % (8-40) 09/15/18 06:00 Lymphocytes % (Manual) 5.0 % (8-40) L 09/13/18 14:45 Monocytes % 6.9 % (3.8-10.2) 09/15/18 06:00 Monocytes % (Manual) 6 % (3.8-10.2) 09/13/18 14:45 Eosinophils % 0.5 % (0-4.5) 09/15/18 06:00 Eosinophils % (Manual) 1.0 % (0-4.5) 09/13/18 14:45 Basophils % 0.3 % (0-2.0) 09/15/18 06:00 Basophils % (Manual) 0.0 % (0-2.0) 09/13/18 14:45 Myelocytes % (Man) 0 % (0-2) 09/13/18 14:45 Promyelocytes % (Man) 0 % (0-2) 09/13/18 14:45 Blast Cells % (Manual) 0 % (0-0) 09/13/18 14:45 Nucleated RBC % 0 % (0-0) 09/15/18 06:00 Metamyelocytes 0 % (0-2) 09/13/18 14:45 Hypochromia 0 09/13/18 14:45 Platelet Estimate Decreased 09/13/18 14:45 Polychromasia 0 09/13/18 14:45 Poikilocytosis 0 09/13/18 14:45 Anisocytosis 0 09/13/18 14:45 Microcytosis 0 09/13/18 14:45 Macrocytosis 0 09/13/18 14:45 Haptoglobin 22 mg/dL (34-200) L 09/14/18 12:45 Assessment/Plan 37yo P3 s/p primary LT C/S last night. Pt with possible atypical HELLP vs AFLP LFT are now declining Platelets stable She is doing well postop. Asymptomatic for anemia. Monitor labs.
[2018-09-16 08:06] LABS: BASO % 0.4 % (0-2.0); EOS % 1.1 % (0-4.5); HEMATOCRIT 30.1 % (32.4-45.2); HEMOGLOBIN 10.2 GM/dL (10.7-15.3); MCH 27.7 pg (25.7-33.7); MEAN CELL VOLUME 81.4 fl (80-96); MEAN PLT VOLUME 9.9 fl (7.5-11.1); MONO % 5.9 % (3.8-10.2); NEUT % 74.6 % (42.8-82.8); PLATELET COUNT 105 K/MM3 (134-434); RBC 3.69 M/mm3 (3.60-5.2); RDW 14.1 % (11.6-15.6); WHITE BLOOD COUNT 9.1 K/mm3 (4.0-10.0)
[2018-09-16 08:11] LABS: BILIRUBIN,DIRECT 0.2 mg/dL (0.0-0.2); BILIRUBIN,TOTAL 0.6 mg/dL (0.2-1)
[2018-09-16] MEDS: PRENATAL VITAMINS W/ FOLIC ACID TABLET (FP) PO SCH (09:24)
[2018-09-16 09:48] LABS: ANISOCYTOSIS 0; MACROCYTOSIS 0; PLATELET ESTIMATE DECREASED
[2018-09-16] MEDS: IBUPROFEN 600 MG TABLET (FP) PO PRN ×2 (11:06→21:44)
[2018-09-16] MEDS: oxyCODONE HCL 5 MG TABLET PO PRN (11:07)
--- NOTE | 2018-09-16 15:19 | PN.GI ---
GI Progress Note Subjective: Pt seen/examined at bedside, feeling well, denies abdominal pain, n/v. Moving bowels. Appetite good. - Objective Vital Signs: Vital Signs Temperature 98.8 F 09/15/18 21:47 Pulse Rate 93 H 09/15/18 21:47 Respiratory Rate 18 09/15/18 21:47 Blood Pressure 137/78 09/15/18 21:47 O2 Sat by Pulse Oximetry (%) 100 09/14/18 06:00 Constitutional: Well Nourished, No Distress Cardiovascular: Yes: WNL, Regular Rate and Rhythm Respiratory: Yes: WNL, Regular, CTA Bilaterally Gastrointestinal Inspection: Yes: WNL ...Palpate: Yes: Other (Abd soft, nt, nd) Labs: CBC, BMP 09/16/18 07:15 09/15/18 12:02 INR, PTT INR 0.87 (0.83-1.09) 09/14/18 19:00 Fibrinogen > 500.0 mg/dL (238-498) H 09/14/18 19:00 Problem List - Problems (1) Elevated LFTs Assessment/Plan: 37yo female h/o hypothyroidism, presents at 37 weeks gestation with RUQ pain x 1 day and elevated LFTs s/p uncomplicated section. Marked transaminases noted to 1000s now significantly improved. T bili normal. Coags, glucose and uric acid normal. Possible etiologies including HELLP vs acute fatty liver of . Pt clinically doing well. -Recommend continue to closely monitor LFT trend to ensure normalization -Diet as tolerated -Pending dispo, recommend outpatient follow up -Further management per OB team Code(s): R94.5 - ABNORMAL RESULTS OF LIVER FUNCTION STUDIES
[2018-09-16] MEDS: SIMETHICONE 80 MG TAB.CHEW (FP) PO PRN (21:44)
[2018-09-17] MEDS: LEVOTHYROXINE NA 100 MCG TABLET (FP) PO SCH (06:28)
--- NOTE | 2018-09-17 09:27 | PN ---
Post Progress Note - Subjective Subjective: Patient without acute complaints. Reports tolerating oral intake without nausea or vomiting. Ambulating without dizziness. Denies fevers or chills. Pain well controlled with oral pain medication. without difficulty. Passing flatus. Type of Delivery: Primary C/S Vital Signs: Vital Signs Temperature 98.9 F 09/16/18 22:00 Pulse Rate 90 09/16/18 22:00 Respiratory Rate 18 09/16/18 22:00 Blood Pressure 137/79 09/16/18 22:00 O2 Sat by Pulse Oximetry (%) 100 09/14/18 06:00 Breast Exam: Yes: Soft Uterus: Yes: Fundus Firm Incision: Yes: Sutures intact. No: Redness, Oozing Abdomen/GI: Yes: Abdomen soft, Passing flatus, Tolerating PO. No: Abdominal Distention, Tender Lochia: Yes: Rubra Lochia, amount: Small Extremities: Yes: Calves non-tender, Edema (trace) Activity: Ambulating - Labs Labs: CBC WBC 9.1 K/mm3 (4.0-10.0) 09/16/18 07:15 RBC 3.69 M/mm3 (3.60-5.2) 09/16/18 07:15 Hgb 10.2 GM/dL (10.7-15.3) L 09/16/18 07:15 Hct 30.1 % (32.4-45.2) L 09/16/18 07:15 MCV 81.4 fl (80-96) 09/16/18 07:15 MCH 27.7 pg (25.7-33.7) 09/16/18 07:15 MCHC 34.0 g/dl (32.0-36.0) 09/16/18 07:15 RDW 14.1 % (11.6-15.6) 09/16/18 07:15 Plt Count 105 K/MM3 (134-434) L D 09/16/18 07:15 MPV 9.9 fl (7.5-11.1) 09/16/18 07:15 Absolute Neuts (auto) 6.8 K/mm3 (1.5-8.0) 09/16/18 07:15 Neutrophils % 74.6 % (42.8-82.8) 09/16/18 07:15 Neutrophils % (Manual) 74.8 % (42.8-82.8) 09/16/18 07:15 Band Neutrophils % 0.0 % 09/16/18 07:15 Lymphocytes % 18.0 % (8-40) D 09/16/18 07:15 Lymphocytes % (Manual) 12.1 % (8-40) D 09/16/18 07:15 Monocytes % 5.9 % (3.8-10.2) 09/16/18 07:15 Monocytes % (Manual) 7 % (3.8-10.2) 09/16/18 07:15 Eosinophils % 1.1 % (0-4.5) D 09/16/18 07:15 Eosinophils % (Manual) 2.0 % (0-4.5) D 09/16/18 07:15 Basophils % 0.4 % (0-2.0) 09/16/18 07:15 Basophils % (Manual) 0.0 % (0-2.0) 09/16/18 07:15 Myelocytes % (Man) 1 % (0-2) D 09/16/18 07:15 Promyelocytes % (Man) 0 % (0-2) 09/16/18 07:15 Blast Cells % (Manual) 1 % (0-0) H D 09/16/18 07:15 Nucleated RBC % 0 % (0-0) 09/16/18 07:15 Metamyelocytes 0 % (0-2) 09/16/18 07:15 Hypochromia 0 09/16/18 07:15 Platelet Estimate Decreased 09/16/18 07:15 Polychromasia 0 09/16/18 07:15 Poikilocytosis 0 09/16/18 07:15 Anisocytosis 0 09/16/18 07:15 Microcytosis 0 09/16/18 07:15 Macrocytosis 0 09/16/18 07:15 Haptoglobin 22 mg/dL (34-200) L 09/14/18 12:45 Assessment/Plan 37 yo POD # 4 s/p CD, with likely HELLP / Acute fatty liver or , doing well 1. Will repeat BW IF BW stable, will DC home today 2. Patient encouraged to contact MD for: - Severe pain not controlled by oral pain medication - Fevers or chills - Nausea or vomiting, intolerance of oral intake - Incision redness, tenderness or discharge 3. Patient to follow up in office in 1-2 weeks for incision check, 4-6 weeks for visit, GI follow up as directed
[2018-09-17] MEDS: PRENATAL VITAMINS W/ FOLIC ACID TABLET (FP) PO SCH (10:18)
[2018-09-17 11:12] VITALS: BP 112/72; PULSE 64; TEMP 98.2
[2018-09-17 11:15] LABS: HEMATOCRIT 30.6 % (32.4-45.2); HEMOGLOBIN 10.4 GM/dL (10.7-15.3); MCH 27.9 pg (25.7-33.7); MCHC 34.1 g/dl (32.0-36.0); MEAN CELL VOLUME 81.8 fl (80-96); MEAN PLT VOLUME 9.6 fl (7.5-11.1); PLATELET COUNT 156 K/MM3 (134-434); RBC 3.74 M/mm3 (3.60-5.2); RDW 14.3 % (11.6-15.6); WHITE BLOOD COUNT 8.4 K/mm3 (4.0-10.0)
[2018-09-17 11:47] LABS: ALBUMIN 2.2 g/dl (3.4-5.0); ALK PHOS 171 U/L (45-117); ANION GAP 5 MMOL/L (8-16); BILIRUBIN,TOTAL 0.6 mg/dL (0.2-1); BLOOD UREA NITROGEN 9 mg/dL (7-18); CALCIUM 8.4 mg/dL (8.5-10.1); CHLORIDE 106 mmol/L (98-107); CO2 28 mmol/L (21-32); CREATININE 0.5 mg/dL (0.55-1.3); GLUCOSE,RANDOM 60 mg/dL (74-106); SGOT/AST 95 U/L (15-37); SGPT/ALT 429 U/L (13-61); SODIUM 139 mmol/L (136-145); TOT PROT 5.4 g/dl (6.4-8.2)
--- NOTE | 2018-09-17 12:49 | DS ---
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 Vital Signs: Vital Signs Temperature 98.2 F 09/17/18 10:00 Pulse Rate 64 09/17/18 10:00 Respiratory Rate 20 09/17/18 10:00 Blood Pressure 112/72 09/17/18 10:00 O2 Sat by Pulse Oximetry (%) 100 09/14/18 06:00 Constitutional: Yes: Well Nourished, No Distress, Calm Eyes: Yes: WNL, Conjunctiva Clear HENT: Yes: WNL, Atraumatic, Normocephalic Neck: Yes: WNL, Supple, Trachea Midline Cardiovascular: Yes: WNL, Regular Rate and Rhythm Respiratory: Yes: WNL, Regular, CTA Bilaterally Gastrointestinal: Yes: WNL, Normal Bowel Sounds, Soft ...Rectal Exam: Yes: Deferred Renal/: Yes: WNL Internal Exam Deferred: Yes ....Post : Yes: Uterus firm, Uterus non-tender, Slight lochia rubra Breast(s): Yes: WNL Musculoskeletal: Yes: WNL Extremities: Yes: WNL Edema: Yes Edema: LLE: Trace, RLE: Trace Integumentary: Yes: WNL Wound/Incision: Yes: Clean/Dry, Well Approximated, Sutures Intact, Steri Strips , Open to air Neurological: Yes: WNL, Alert, Oriented ...Motor Strength: WNL Psychiatric: Yes: WNL, Alert, Oriented Labs: CBC, BMP 09/17/18 10:55 09/17/18 10:55 Delivery - Delivery Section: Primary, Low Flap Transverse Type of Anesthesia: Spinal Episiotomy/Laceration: None EBL (cc): 500 Delivery, Single - Stages of Labor Date of Delivery: 09/13/18 Time of Delivery: 19:52 Time Placenta Delivered: 19:53 Placenta: Yes: Expressed, Normal Configuration - Condition of Infant Senior Manager/Patrol Officer Present: Yes Name: Danna Salazar Gender: Male Weight: 2.495 kg Position: Left, OT Total Hours ROM (Hrs/Mins): 1min - 1 Minute Total Score: 9 5 Minutes Total Score: 9 - [place] Feeding Plan Initial Plan: Elected not to breastfeed exclusively throughout hospitalization Remarks - Remarks Remarks: Uncomplicated primary LT C/S Discharge Summary Reason For Visit: RUQ Abdom pain, PREECLAMPSIA/HELLP Current Active Problems at EGA 37w 3d RUQ abdominal pain Elevated LFTs (Acute) Thrombocytopenia Fever Suspected atypical HELLP syndrome vs. Acute Fatty Liver of or overlap of both Category II tracing Procedures: Principal: Primary LT C/S Hospital Course: Normal post op recovery. Improvement in LFT. Normalization of platelet count Condition: Good - Instructions Diet, Activity, Other Instructions: Physical activity Resume your normal everyday activity as tolerated no heavy lifting or exercise until seen by your surgeon. You may walk unlimited marty of and climb stairs. You may resume driving the car when you feel safe and comfortable behind the wheel. No sexual activity as instructed. Wound care If you have a bandage, leave it on, and keep dry for 48-72 hours. After that time discard the outer bandage. If they are tapes on the skin under the out of bandage leave them in place. They will peel off in the next 7 to 10 days. Do Not Peel them off. You may shower the day after surgery. If there are tapes present on the skin, you may shower over them. Diet There are no dietary restrictions. Eat healthy, high-fiber foods. Drink 6 to 8 glasses of liquid each day. This will assist in keeping your bowels are regular. Pain management You may take Tylenol or acetaminophen or Ibuprofen (for example, Motrin, Advil etc.) from my pain prescription medication is ordered should be taken as prescribed for moderate to severe pain. Call MD for any of the following: Severe pain not relieved by medication Fever of 101 or higher Excessive bleeding or drainage on dressing Inability to urinate Referrals: Lexa Crews MD [Staff Physician] - Disposition: HOME - Home Medications Comprehensive Discharge Medication List: Ambulatory Orders Levothyroxine [Synthroid -] 175 mcg PO DAILY 09/13/18 Pnv No.95/Ferrous Fum/Folic AC [ Vitamin Tablet] 1 each PO DAILY
[2018-09-17] MEDS: IBUPROFEN 600 MG TABLET (FP) PO PRN (16:03)
--- NOTE | 2018-09-17 16:53 | PATH ---
Surgical Pathology Report Patient Name: GAMALIEL GEORGES [facility]. Rec. #: [id number] /Age/Gender: 1980 (Age: 37) / F Account: [id number] Location: [facility] OBS/PALAEONTOLOGIST Taken: 09/13/2018 Received: 09/15/2018 Reported: 09/17/2018 Physicians: Lexa Crews M.D. Specimen(s) Received PLACENTA Clinical History , 37.4 weeks, acute fatty liver, nonreassuring heart rate Final Diagnosis PLACENTA: THIRD TRIMESTER PLACENTA. TRIVASCULAR CORD. MEMBRANES WITH NO DIAGNOSTIC ABNORMALITIES. Electronically Signed Martha Barroso M.D. Gross Description The specimen is received fresh labeled placenta and is a 527 gram, 19.5 x 15.0 x 1.8 cm. placenta with attached membranes and umbilical cord. The attached membranes are connors, translucent with focal opacities and insert marginally. The umbilical cord measures 11 cm. in length and averages 1.1 cm. in diameter. The cord inserts eccentrically, 6 cm. to the nearest margin. No true knots or strictures are identified. Cut surface of the umbilical cord reveals 3 vessels. The surface is bedoya-blue with minimal fibrin deposition and appropriate caliber vessels. The maternal surface is red-brown and intact. Sectioning reveals red-brown, spongy parenchyma. No lesions are identified. Hand Welt Butter sections are submitted in three cassettes as follows: 1- membrane rolls and umbilical cord; 2-3- full thickness sections of placenta. /09/15/2018 saudi09/15/2018
== END 2018-09-17 17:30 | disposition home or self-care (01) | DRG 786 ==
LOC: JDEL 13:40 → JLDR 15:30 → J3W 09-14 15:39
PROVIDERS: ADMIT Obstetrics & Gynecology; ATTEND Obstetrics & Gynecology
PROC: 10D00Z1 Extraction of Products of Conception, Low, Open Approach (ICD-10-PCS; principal; 2018-09-13)
DX: O26.613 Liver and biliary tract disorders in pregnancy, third trimester (principal); O14.23 HELLP syndrome (HELLP), third trimester; O99.113 Other diseases of the blood and blood-forming organs and certain disorders involving the immune mechanism complicating pregnancy, third trimester; O76 Abnormality in fetal heart rate and rhythm complicating labor and delivery; K76.0 Fatty (change of) liver, not elsewhere classified; O99.02 Anemia complicating childbirth; D57.3 Sickle-cell trait; D69.6 Thrombocytopenia, unspecified; O75.89 Other specified complications of labor and delivery; R50.9 Fever, unspecified; O99.284 Endocrine, nutritional and metabolic diseases complicating childbirth; E03.9 Hypothyroidism, unspecified; Z3A.37 37 weeks gestation of pregnancy; Z37.0 Single live birth
CPT/HCPCS: 36415; 36430; 36511; 36600; 71046-TC-FY; 76705-TC; 80053; 80069; 80074; 80076; 81003; 82140; 82150; 82803; 83010; 83615; 83690; 84550; 85025; 85027; 85362; 85384; 85461; 85610; 85730; 86593; 86704; 86706; 86708; 86850; 86900; 86901; 86922; 87040; 87086; 87340; 87522; 88307-TC; P9034; P9038